=== PATIENT | female | born 1955 | race Caucasian/White ===

== ENCOUNTER → 2016-09-28 | Outpatient (CLI) | payer OTHER ==
[~2016-09-28] MED LIST: ALBUTEROL17 GM INH; FISH OIL 1,0001 CAP PO; HYCODAN PO; LEVAQUIN PO; LOTENSIN20 MG PO; LOTREL 10/20 MG1 CAP; NEXIUM; NEXIUM PO; OYSTER CALCIUM500 MG; PREMPRO PO; PROTONIX PO; RONDEC-DM ORAL30 ML PO; SYNTHROID PO; ZITHROMAX PO; ZOCOR PO
--- NOTE | ~2016-09-28 | US98 ---
[facility] A Service of [facility] & [facility] RADIOLOGY TEXT RESULTS PATIENT: DEBBIE WILEY LOCATION: [facility] : 55 UNIT #: [id number] AGE: [address]: Caridad Caldwell APRN SEX: F ORDER DR: [id number] [address] [address] [id number] O MR#: [id number] Acc #: [id number] NAME: DEBBIE WILEY. : 1955 SEX: F STUDY DATE/TIME: 09/28/2016 9:53 UNIT: [facility] ROOM: STUDY DESCRIPTION: US Pelvic Non-OB Complete Attending Physician: Caridad Caldwell A.P.R.N. Referring Physician: Caridad Caldwell A.P.R.N. Ordering Physician: Caridad Caldwell A.P.R.N. Primary Care Physician: Caridad Caldwell A.P.R.N. MEDICAL IMAGING REPORT This report is preliminary unless electronic signature is present. EXAM Pelvic ultrasound HISTORY Pelvic pain for several month which has gotten worse in the last 1.5 week. Patient reports it feels as if she has to pee but cannot. Last normal menstrual period was 10 years ago. She is 3, para 3. TECHNIQUE Grayscale color Doppler and spectral Doppler waveform analysis was performed through the patient's pelvis both transabdominally and transvaginally. FINDINGS Neither ovary can be identified on either transabdominal or transvaginal images. There are very technically limited images of the uterus. No obvious abnormality is seen. The tile layer drainage measures the endometrium at up to 8 mm in thickness. I am uncertain as to the veracity of this measurement. However 8 mm could still be within normal limits in a post-menopausal woman in the absence of any history of vaginal bleeding. No obvious masses are seen. IMPRESSION Extremely technically limited examination. Neither ovary can be seen. Images of the uterus are also technically limited. No obvious masses are identified. Endometrium is measured at up to about 8 mm which would be within normal limits in a post-menopausal woman in the absence of any history of vaginal bleeding. [facility] A Service of [facility] RADIOLOGY TEXT RESULTS PATIENT: DEBBIE WILEY LOCATION: [facility] : 55 UNIT #: [id number] AGE: [address]: Caridad Caldwell APRN SEX: F ORDER DR: Dictated by... Katrina Hernandez M.D. THIS IS AN ELECTRONICALLY VERIFIED REPORT Katrina Hernandez M.D. at 10/01/2016 5:05 PM AFF/rnlenny TD: 09/28/2016 23:08 JOB #: [id number] MEDICAL IMAGING REPORT Page 1 of 1
== END | disposition home or self-care (01) ==
LOC: SGUS 09:41
DX: Z01.419 Encounter for gynecological examination (general) (routine) without abnormal findings (principal)
CPT/HCPCS: 76830; 76856